=== PATIENT | female | born 1965 | race Caucasian/White ===

== ENCOUNTER → 2017-09-26 | Outpatient (CLI) | payer BC, OTHER | LOC: FIMAGING 08:32 | PROVIDERS: ATTEND Obstetrics & Gynecology Gynecology | DX: Z12.31 Encounter for screening mammogram for malignant neoplasm of breast (principal); Z80.3 Family history of malignant neoplasm of breast ==

== ENCOUNTER → 2018-10-15 | Outpatient (CLI) | payer BC, OTHER | LOC: FIMAGING 10:18 ==

== ENCOUNTER → 2018-10-30 | Outpatient (CLI) | payer OTHER | LOC: FIMAGING 13:01 ==